=== PATIENT | female | born 1990 | race African-American/Black ===

== ENCOUNTER 2024-06-25 21:03 | Emergency (ER) | payer MEDICAID, OTHER ==
[~2024-06-25] VITALS: Ht 165.1 cm; Wt 68.0 kg
[2024-06-25 21:50] VITALS: O2SAT 100
[2024-06-25] MEDS ORDERED: IBUP-2029 MT (23:26)
[2024-06-25] MEDS: IBUPROFEN 600MG TABLET PO ONE (23:30)
[2024-06-26 00:10] VITALS: BP 125/67; PULSE 68; RESP 18; TEMP 37.16964; O2SAT 98
== END 2024-06-26 01:01 | disposition home or self-care (01) ==
LOC: ER 21:03
DX: S90.02XA Contusion of left ankle, initial encounter (principal); S90.32XA Contusion of left foot, initial encounter; X58.XXXA Exposure to other specified factors, initial encounter; Y93.89 Activity, other specified; Y92.89 Other specified places as the place of occurrence of the external cause; Y99.8 Other external cause status
CPT/HCPCS: 29515; 73610; 73630; 99284